=== PATIENT | female | born 1950 | race Caucasian/White ===

== ENCOUNTER 2018-09-15 19:40 | Inpatient (IN) ==
[2018-09-15] MEDS ORDERED: MORPHINE IV ONE ×2 (20:11→21:43)
[2018-09-15] MEDS ORDERED: NS 1,000 ML IV ONE (20:11)
[2018-09-15] MEDS ORDERED: ZOFRAN IV ONE (20:11)
[2018-09-15 21:06] LABS: BASO# 0.02 X1000 (0.0-0.2); BASO% 0.2 % (0.0-0.8); EOS# 0.01 X1000 (0.0-0.7); EOS% 0.1 % (0.0-10.0); HEMATOCRIT 39.6 % (37.0-47.0); HEMOGLOBIN 13.4 g/dL (12.0-16.0); LYMPH# 0.68 X1000 (1.2-3.4); LYMPH% 7.2 % (20.5-51.1); MCH 29.1 PG (27-31); MCHC 33.8 g/dL (33-37); MCV 86.1 FL (81-99); MONO# 0.57 X1000 (0.11-0.59); MPV 10.2 FL (7.4-10.4); NEUT# 8.23 X1000 (1.4-6.5); NEUT% 86.5 % (42.2-75.2); PLT 445 X1000 (130-400); RDW 12.7 % (11.5-14.5); WBC 9.51 X1000 (4.8-10.8)
[2018-09-15 21:09] LABS: AGAP 13; ALB/GLOB RATIO 1.3; ALBUMIN 3.9 g/dL (3.5-5.0); ALKALINE PHOSPHATASE 84 U/L (32-104); BUN 14 mg/dL (8-22); CHLORIDE 101 mmol/L (98-107); COSMO 276; CREATININE 0.6 mg/dL (0.5-0.9); ESTIMATED GFR > 60; GLUCOSE 169 mg/dL (70-104); GOT 26 U/L (10-30); GPT 16 U/L (10-36); LIPASE 17 U/L (13-60); POTASSIUM 4.3 mmol/L (3.5-5.1); SODIUM 136 mmol/L (136-145); TCO2 22 mmol/L (25-35)
[2018-09-15] MEDS ORDERED: G.I. COCKTAIL PO ONE (21:43)
--- NOTE | 2018-09-15 22:27 | Diag Imaging Result Doc PS360 ---
CT ABD/PELVIS W/PO AND IV CON - 09/15/2018 INDICATION: r/o SBO, recent knee surgery, no BM, N/V COMPARISON: None FINDINGS: The lung bases are clear and the heart size is normal. There is a small hiatal hernia. There is severe dilation of the colon diffusely. There is significant loss of the house from markings. There is moderate wall thickening of the descending and sigmoid colon. Wall thickness measures about 5 mm here. The colon is filled mostly with fluid but also with prominent stool. There is trace pelvic free fluid. No significant inflammation about the bowels otherwise. The liver, gallbladder, spleen, pancreas, adrenals, and kidneys are normal. Uterus is absent. Urinary bladder is normal. There is moderate rotary scoliosis of the lumbar spine. There are advanced degenerative changes of the spine. No acute or suspicious bony lesion. IMPRESSION: Significant dilation of the colon which is filled with stool and prominent fluid. There is distal wall thickening consistent with inflammation. Overall the appearance is highly consistent with chronic inflammatory bowel disease, particularly ulcerative colitis. Other possibilities include infectious colitis with severe adynamic ileus. This exam was performed using automated exposure control, adjustment of mA or kV according to patient size, and/or use of iterative reconstruction technique Electronically signed by Dayton Flores 09/15/2018 10:24 PM
--- NOTE | 2018-09-15 23:08 | PROVIDER DOCUMENTATION ---
This chart was entered by Sandeep Bergman Scribe, acting as scribe for Marshall Arthur MD. HPI-Abdominal Pain/GI Problem - General Chief Complaint: Abdominal Pain Stated Complaint: ABD PAIN Time Seen by Provider: 09/15/18 20:02 Source: patient Allergies/Adverse Reactions: Patient Allergies Allergy/AdvReac Type Severity Reaction Status Date / Time bee pollen [Bee Pollen] Allergy RASH Verified 08/25/18 12:35 codeine Allergy VOMITING Verified 08/25/18 12:35 meperidine HCl * Allergy RASH Verified 08/25/18 12:35 [From Demerol] midazolam HCl * [From Versed] Allergy RASH Verified 08/25/18 12:35 nalbuphine HCl * Allergy RASH Verified 08/25/18 12:35 [From Nubain] Sulfa (Sulfonamide Allergy RASH Verified 08/25/18 12:35 Antibiotics) ciprofloxacin [From Cipro] AdvReac NAUSEA/VOMI Verified 08/25/18 12:35 TING nitrofurantoin AdvReac NAUSEA/VOMI Verified 08/25/18 12:35 [From Macrobid] TING Home Medications: Home Medication List Medication Instructions Recorded Confirmed Last Taken Type Amlodipine [Norvasc] 2.5 mg PO DAILY 03/29/14 08/25/18 08/25/18 06:00 History Carvedilol [Coreg] 6.25 mg PO BID 03/29/14 08/25/18 08/25/18 06:00 History Citalopram [Celexa] 20 mg PO DAILY 03/29/14 08/25/18 08/25/18 06:00 History Estradiol 1 mg PO DAILY 03/29/14 08/25/18 08/24/18 21:00 History Levothyroxine [Synthroid] 25 mcg PO DAILY 03/29/14 08/25/18 08/25/18 06:00 History Oxybutynin [Ditropan] 5 mg PO BID 03/29/14 08/25/18 08/25/18 06:00 History Cholecalciferol (Vitamin D3) 2,000 unit PO DAILY 08/18/18 08/25/18 08/25/18 06: 00 History [Vitamin D3] Cyanocobalamin (Vitamin B-12) 500 mcg SL DAILY 08/18/18 08/25/1819 06:00 History [Vitamin B-12] Meloxicam 15 mg PO DAILY 08/18/18 08/18/18 08/18/18 History Multivitamin [Multivitamins] 1 each PO DAILY 08/18/18 08/25/18 08/23/18 History Omeprazole 40 mg PO DAILY 08/18/18 08/25/18 08/24/18 08:00 History SIMVAstatin [Zocor] 5 mg PO QHS 08/18/18 08/25/18 08/24/18 20:00 History Aspirin 325 mg PO DAILY #14 tablet 08/26/18 Unknown Rx Ondansetron HCl [Zofran] 4 mg PO Q6H PRN #20 tablet 08/26/18 Unknown Rx Oxycodone HCl/Acetaminophen 1 each PO Q4-6H PRN PRN #40 tablet 08/26/18 Unknown Rx [Percocet 5-325 mg Tablet] - History of Present Illness-ABD Nature of Presenting Problems: Pt is a 68 y/o F presents to the ED with abdominal pain, N/V and constipation. She reports knee surgery and taking Narcotics for the pain. She reports going 3 days without a BM and today did pass a small amount of stool. She states this is after doing and enema, taking stool softener yesterday and drinking some Mag Citrate. Abdominal Pain Onset Location: reports: generalized abdomen Pain Radiation: reports: no radiation Quality of Pain: reports: aching Severity in ED: reports: moderate, severe Onset/Duration: reports: gradual Timing: reports: still present Activities at Onset: reports: none Exposure to sick contacts?: No Modifying Factors: improves with: nothing Associated Symptoms: reports: constipation, nausea, vomiting. denies: diaphoresis, diarrhea, fever/chills, genitourinary problems, shortness of breath , trouble walking Last BM: 4 days ago Dark Stools Present?: reports: none noticed Rectal Bleeding: reports: none Review of Systems - Adult - REVIEW OF SYSTEMS - ADULT Constitutional: denies: chills, fever Eyes: reports: no symptoms reported Ears, Nose, Mouth & Throat: reports: no symptoms reported Cardiovascular: reports: no symptoms reported Respiratory: denies: cough, shortness of breath, wheezing Gastrointestinal: reports: abdominal pain, constipation, nausea, vomiting. denies: diarrhea, rectal bleeding Genitourinary: denies: dysuria, frequency, flank pain Musculoskeletal: denies: back pain, neck pain Integumentary: reports: no symptoms reported Neurological: denies: dizziness/vertigo, headache/migraines Psychiatric: reports: no symptoms reported Endocrine: reports: no symptoms reported Hematologic/Lymphatic: reports: no symptoms reported Allergic/Immunologic: reports: no symptoms reported All Other Systems: Reviewed and Negative Past History - Adult - PAST MEDICAL HISTORY-ADULT Review of Records: reports: Old Records Reviewed, Nursing Assessment Review, Medications Reviewed - PRIOR SURGERIES/PROCEDURES Surgical/Procedure History: reports: hysterectomy, orthopedic (extremity), joint replacement, other (squamous cell removal, bladder sling, and colon polyps removed.) - IMMUNIZATION STATUS Childhood Immunizations: See Nurse Assessment Flu Vaccine: See Nurse Assessment - SOCIAL HISTORY Smoking: non-smoker, quit greater than 1 year Living Situation: family Physical Exam-General - PHYSICAL EXAM-ADULT Initial Vital Signs Reviewed: Yes - CONSTITUTIONAL General Appearance: appears well, alert, no apparent distress - EYES Eyes: PERRL/EOMI, pink conjunctivae - HEAD, EARS, NOSE, MOUTH & THROAT HENMT: moist mucous membranes, normal ENT inspection, pharynx normal - NECK Neck: non-tender, full range of motion, supple, normal inspection - RESPIRATORY Respiratory: lungs clear, normal breath sounds, no pleuratic chest pain, no respiratory distress, no accessory muscle use - CARDIOVASCULAR Cardiovascular: normal peripheral pulses, regular rate, rhythm - GASTROINTESTINAL (ABDOMEN) Abdominal Exam: normal bowel sounds, soft, tenderness (diffuse) - MUSCULOSKELETAL Back Exam: normal inspection, no CVA tenderness, no vertebral tenderness Extremity: normal range of motion, non-tender, normal gait, normal inspection - SKIN Integumentary: normal color, normal turgor, warm/dry - NEUROLOGIC Neurologic: grossly normal, no motor/sensory deficits - PSYCHIATRIC Psych/Mental Status: normal mood/affect, normal thought content, normal thought process, oriented x 3 Progress - PLAN OF CARE/RESULTS Progress/Plan/Lab Results: Vital Signs - 8 hr 09/15/18 19:48 Temperature 98.0 F Pulse Rate 102 H Respiratory Rate 16 Blood Pressure 166/96 O2 Sat by Pulse Oximetry 99 Result Diagrams: 09/15/18 20:40 09/15/18 20:40 - CT/MRI 1 CT Study: Abdomen, Pelvis Impression: Abnormal (CT ABD/PELVIS W/PO AND IV CON - 09/15/2018 INDICATION: r/ o SBO, recent knee surgery, no BM, N/V COMPARISON: None FINDINGS: The lung bases are clear and the heart size is normal. There is a small hiatal hernia. There is severe dilation of the colon diffusely. There is significant loss of the house from markings. There is moderate wall thickening of the descending and sigmoid colon. Wall thickness measures about 5 mm here. The colon is filled mostly with fluid but also with prominent stool. There is trace pelvic free fluid. No significant inflammation about the bowels otherwise. The liver, gallbladder, spleen, pancreas, adrenals, and kidneys are normal. Uterus is absent. Urinary bladder is normal. There is moderate rotary scoliosis of the lumbar spine. There are advanced degenerative changes of the spine. No acute or suspicious bony lesion. IMPRESSION: Significant dilation of the colon which is filled with stool and prominent fluid. There is distal wall thickening consistent with inflammation. Overall the appearance is highly consistent with chronic inflammatory bowel disease, particularly ulcerative colitis. Other possibilities include infectious colitis with severe adynamic ileus. This exam was performed using automated exposure control, adjustment of mA or kV according to patient size, and/or use of iterative reconstruction technique Electronically signed by Dayton Flores 09/15/2018 10:24 PM), See EMR Report Comparison with other Films: no prior study Departure - Departure Date of Disposition Decision: 09/15/18 Time of Disposition Decision: 22:56 DIAGNOSIS: Ileus, postoperative Disposition: ADMITTED INPATIENT 09 Certified Medical Emergency: Emergent Condition: Stable Referrals and Follow-Ups: Alyson Sevilla CRNP [Primary Care Provider] - - Critical Care Note This patient required my direct & personal management of CC.: No Attestation - Physician/ RICK Attestation Patient care was provided by Advanced Practice Provider:: No The physician spent face to face time with patient:: Yes Advanced Practice Provider documentation review:: Supervising physician onsite and consulted in the evaluation and care of this patient. The physician did have a face to face encounter with the patient. This chart was documented by the indicated scribe, (Sandeep Bergman Scribe) and accurately reflects the services I performed and decisions made by me, Marshall Arthur MD, as attested by the provider's signature.
[2018-09-15 23:43] LABS: URINE SOURCE CATH
[2018-09-15 23:51] LABS: BILIRUBIN URINE NEGATIVE (NEGATIVE); BLOOD URINE NEGATIVE (NEGATIVE); COLOR YELLOW; GLUCOSE URINE NEGATIVE (NEGATIVE); KETONE URINE 40 mg/dL (NEGATIVE); LEUKOCYTES URINE NEGATIVE (NEGATIVE); NITRITE URINE NEGATIVE (NEGATIVE); PH URINE 6.5; PROTEIN URINE TRACE mg/dL (NEGATIVE); SP GRAVITY URINE > 1.050; TURBIDITY URINE CLEAR (CLEAR); UR EPITHELIAL CELLS <10 /HPF (<10); URINE BACTERIA NEGATIVE /HPF; URINE RBC <10 /HPF (<10); URINE WBC <10 /HPF (<10); UROBILINOGEN URINE 2 mg/dL (NORMAL)
[2018-09-16] MEDS ORDERED: ZOFRAN IV PRN (00:23)
[2018-09-16] MEDS ORDERED: MORPHINE IV PRN (00:25)
[2018-09-16] MEDS ORDERED: APRESOLINE IV PRN (00:26)
[2018-09-16] MEDS ORDERED: NS 1,000 ML IV SCH (00:30)
[2018-09-16] MEDS ORDERED: LOVENOX SUBQ SCH (00:30)
--- NOTE | 2018-09-16 04:57 | HISTORY AND PHYSICAL ---
CHIEF COMPLAINT: Abdominal pain. HISTORY OF PRESENT ILLNESS: Ms. Mercado is a 68-year-old female who comes in with abdominal pain. It started as cramping this Friday. She recently, I believe three weeks ago, had a right total knee replacement by Dr. Beth. She has a past medical history of GERD, hypertension, hyperlipidemia, cervical cancer, status post hysterectomy, hypothyroidism and osteoarthritis. As noted, she was doing well after surgery. She was at home doing well with rehab. Friday started having gas type pains as she states that she has a problem with constipation. Friday she took some stool softeners. Friday, I believe, she took some laxatives, some mag citrate as well as an enema. She came into the emergency room and stated that she was still unable to defecate. A CT scan was obtained in the emergency room which most likely showed an ileus and showed a prominent stool and fluid. Did also note some distal thickening consistent with inflammation which is seen with chronic inflammatory bowel disease such as ulcerative colitis, however, the patient states that she has not had any abdominal complaints prior to this so it is likely severe adynamic ileus. At any rate, the patient will be admitted to the medical floor for further evaluation and treatment. PAST MEDICAL HISTORY: See HPI. PREVIOUS SURGICAL HISTORY: Right total knee, left total knee, hysterectomy, bladder surgery times 3, tonsillectomy, carpal tunnel release. SOCIAL HISTORY: Lives at home with . No tobacco, alcohol or illicit drugs. FAMILY HISTORY: Positive for coronary artery disease and hemorrhagic CVA in her father. Parkinson's in her mother. Sibling with Alzheimer's as well as coronary artery disease and nonspecific cancer. ALLERGIES: Codeine, sulfa, Versed, Demerol, Macrobid, Cipro and Nubain as well as bee pollen. HOME MEDICATIONS: 1. Zocor 5 mg p.o. nightly. 2. Oxycodone 5 mg q.4 to 6 p.r.n. 3. Ditropan 5 mg p.o. b.i.d. 4. Zofran 4 mg p.o. q.6 p.r.n. 5. Omeprazole 40 mg p.o. daily. 6. Multivitamin one daily. 7. Meloxicam 15 mg p.o. daily. 8. Synthroid 25 mcg p.o. daily. 9. Estradiol 1 mg p.o. daily. 10.Vitamin B12 500 sublingual daily. 11.Celexa 20 mg p.o. daily. 12.Vitamin D3 2000 units p.o. daily. 13.Coreg 6.25 mg p.o. b.i.d. 14.Aspirin 325 p.o. daily. 15.Norvasc 2.5 p.o. daily. REVIEW OF SYSTEMS: Fourteen point review of systems conducted with the patient. Pertinent positives listed above in the HPI. All other systems reviewed and found to be negative. PHYSICAL EXAMINATION: VITAL SIGNS: Temperature 98, pulse 80, respirations 18, blood pressure 152/89, oxygen saturation 99% on room air. GENERAL: Pleasant 68-year-old female lying in the ER stretcher, answers all questions appropriately, is alert and oriented times 3. at bedside. HEENT: Head is atraumatic, normocephalic. Pupils equal, round, reactive to light. Extraocular eye movement intact. Sclerae are anicteric. Conjunctiva is pink. Oral mucosa is moist. NECK: Supple. No JVD. No thyromegaly. Trachea is midline. No cervical lymphadenopathy. CARDIAC: S1, S2 appreciated. No murmurs, gallops, rubs. LUNGS: Clear to auscultation bilaterally. No rhonchi, wheezes, rales. Symmetric rise and fall with respirations. ABDOMEN: Soft, diffusely tender, nondistended. Bowel sounds present all 4 quadrants, normoactive. No pulsatile mass. No organomegaly. EXTREMITIES: No clubbing, cyanosis, or edema. Two-plus pedal pulses bilaterally. Right knee has incision which is clean, dry and intact from recent surgery. No signs of infection. NEUROLOGICAL: Alert and oriented times 3. Cranial nerves II through XII appear to be grossly intact. DIAGNOSTIC DATA: CT of the abdomen showed significant dilation of the colon filled with stool and prominent fluid, distal wall thickening consistent with inflammation. Overall the process is highly consistent with chronic inflammatory bowel disease, particularly ulcerative colitis. Other possibilities include infectious colitis with severe adynamic ileus. LABORATORY DATA: CBC within normal limits. Chemistry within normal limits other than a glucose of 169. Urine unremarkable other than 40 ketones. ASSESSMENT AND PLAN: 1. Ileus. Patient started having bowel movements after being here at the emergency room. She states she defecated several times, is feeling better. Will keep her NPO. Continue normal saline. Continue morphine and Zofran as needed. Defer to primary team possible need for consultation by GI. Will check stool studies since colitis or infectious colitis was mentioned on the CT scan. Patient has not had any fever, chills, no elevated white blood cell count or any other abdominal problems that appear to be related to colitis. She does have chronic constipation. Will continue to monitor. 2. Hypertension. Continue home medication. 3. Hyperlipidemia. Continue home medication. 4. Hypothyroidism. Continue Synthroid. Check TSH level. 5. Hyperglycemia. Patient does not carry a diagnosis of diabetes mellitus. Will check hemoglobin A1c. Further recommendations per patient clinical course. Dictated by GERONIMO Cheung for Zbigniew Wynn MD Addendum: Patient seen and examined by myself. Agree with GERONIMO note. It reflects my assessment and plan. Patient is being admitted to hospital for ileus and abdominal pain. Upon my examination she just had several bowel movements. She is still complaining of abdominal pain and nausea. Will keep her in the hospital with IV fluids and will be cautious with pain medications. Will monitor patient closely. cc: GERONIMO Cheung MD Robert S. Tapscott, MD MTDD
[2018-09-16] MEDS ORDERED: NORVASC PO SCH (09:00)
[2018-09-16] MEDS ORDERED: SYNTHROID PO SCH (09:00)
[2018-09-16] MEDS ORDERED: CELEXA PO SCH (09:00)
[2018-09-16] MEDS ORDERED: COREG PO SCH (09:00)
[2018-09-16] MEDS ORDERED: PRILOSEC PO SCH (09:00)
--- NOTE | 2018-09-16 11:39 | Diag Imaging Result Doc PS360 ---
KUB ABDOMEN - 09/16/2018 INDICATION: evaluate for constipation or obstruction COMPARISON: None FINDINGS: There is enteric contrast through the right colon. No bowel obstruction or free air. There is excreted contrast filling the urinary bladder. There is significant rotary scoliosis and spondylosis of the lumbar spine. IMPRESSION: No acute disease. Electronically signed by Dayton Flores 09/16/2018 11:37 AM
--- NOTE | 2018-09-16 13:49 | GASTROENTEROLOGY CONSULTATION ---
DATE: 09/16/2018 REASON FOR CONSULTATION: Postoperative ileus, colitis on imaging. HISTORY OF PRESENT ILLNESS: Mrs. Norma Mercado is a 68-year-old woman with past medical history significant for hypertension, hyperlipidemia, history of cervical cancer status post resection, history of bladder sling complicated by eroding mesh requiring revision and chronic constipation, who presented yesterday with 3 days of obstipation, severe left upper quadrant and suprapubic abdominal pain, and nausea and vomiting. The patient reports being on narcotics after having her surgery for knee replacement 3 weeks ago. She normally takes magnesium for her chronic constipation but has not been taking it recently and has developed worsening symptoms. Over the last couple of days, she took magnesium citrate, stool softener and enemas without significant improvement of her constipation, and developed nonbilious, nonbloody emesis yesterday. She denies any rectal bleeding, melena, history of similar symptoms in the past. She takes Aleve twice daily for joint pain. She is not on any other blood thinners. She had a colonoscopy about 6 years ago that was normal. Previous history of polyps in the past. No chest pain, shortness of breath, rashes, or ulcers, vision changes. PAST MEDICAL HISTORY: 1. Chronic constipation. 2. Osteoarthritis. 3. Hypertension. 4. Hyperlipidemia. 5. Hypothyroidism. 6. History of cervical cancer. PAST SURGICAL HISTORY: 1. Bladder sling requiring multiple surgeries. 2. Hysterectomy. 3. Breast biopsy. 4. Tonsillectomy. 5. Bilateral knee replacements. MEDICATIONS: 1. [place]. 2. Estradiol. 3. Oxybutynin. 4. Citalopram. 5. Amlodipine. 6. Carvedilol. 7. Levothyroxine. 8. Simvastatin. 9. Vitamin B12. 10.Multivitamin. 11.Vitamin D3. 12.Omeprazole. ALLERGIES: Codeine, Demerol, Versed, Macrobid, Cipro, sulfa. FAMILY HISTORY: Notable for maternal grandmother who was diagnosed with colorectal cancer. SOCIAL HISTORY: Former smoker. Quit in 1988. No alcohol or drug use. , lives with . REVIEW OF SYSTEMS: As per HPI. Otherwise 12-point review of systems was negative. PHYSICAL EXAMINATION: Vital Signs: Temperature 98.5, pulse 79, respiratory rate 18, blood pressure 129/60, O2 saturation 100% on room air. General: The patient is awake, alert and oriented in no acute distress. Pleasant, conversant. HEENT: Sclerae anicteric. Moist mucous membranes. No oral ulcers. Oropharynx clear. Neck: No JVD. No lymphadenopathy. Cardiac: Regular rate and rhythm. No murmurs, rubs or gallops. Lungs: Clear to auscultation bilaterally. No wheezing or crackles. Abdomen: Soft, nontender, nondistended. Normoactive bowel sounds. No rebound or guarding. Extremities: No clubbing, cyanosis or edema. Neurologic: Cranial nerves II-XII grossly intact. Moving all extremities symmetrically. Psych: Normal affect. LABORATORY DATA: White count 9.5, hemoglobin 13.4, platelets 445,000. Sodium 136, potassium 4.3, chloride 101, bicarb 22, BUN 14, creatinine 0.6, glucose 159. LFTs were normal. Lipase 17, lactate 1.2. Urinalysis shows ketones, trace proteinuria. IMAGING: CT of the abdomen with and without p.o. and IV contrast shows significant dilation of the colon which is fluid filled with stool. There is distal wall thickening consistent with inflammation. Overall appearance highly consistent with chronic inflammatory bowel disease, particularly ulcerative colitis. Other possibilities include infectious colitis and severe adynamic ileus. ASSESSMENT AND PLAN: Ms. Mercado is a 68-year-old woman with history of chronic constipation and multiple pelvic surgeries in the past who was recently started on narcotics after having knee replacement and presents now with presentation consistent with postoperative ileus. CT of the abdomen and pelvis was notable for dilated colon, retain stool and distal colonic wall thickening from the sigmoid to the rectum. Differential includes inflammatory bowel disease, [*] ulcers, ischemic colitis. Her symptoms have significantly improved since yesterday with 6 bowel movements overnight and essentially resolution of her pain. Stool studies for C. diff toxin were negative. Stool culture is pending currently. Her presentation and findings on imaging are inconsistent with inflammatory bowel disease and would be atypical presentation. An inflammatory bowel disease panel was sent. I will order sedimentation rate and CRP as well as a repeat KUB to assess improvement of her ileus that is primary colonic. We will also start her on clear liquids and advance her diet as tolerated. She will need a colonoscopy at some point. The patient currently prefers that this be done as an outpatient. I have contacted my office and she will call our office to schedule a colonoscopy within the next 2 weeks. The patient and were agreeable with this plan. The patient is okay to be discharged from a GI perspective. Please call with any questions or concerns.
[2018-09-16 15:05] VITALS: BP 120/48
[2018-09-16] MEDS ORDERED: ZOCOR PO SCH (21:00)
== END 2018-09-16 16:36 | disposition home or self-care (01) | DRG 394 ==
LOC: ED 19:40 → SUATTDRO 09-16 01:26 → 4N 09-16 01:26
PROVIDERS: ATTEND Internal Medicine
CPT/HCPCS: 51701; 74000; 74018; 74177; 80053; 81001; 83036; 83520; 83605; 83690; 85025; 85651; 86140; 86255; 86671; 87045; 87046; 87088; 87324; 96361; 96374; 96375; 96376; 99285; A9270; J1650; J2270; J2405; J7030; P9612; Q9967